=== PATIENT | male | born 1990 | race African-American/Black ===

== ENCOUNTER 2020-04-16 21:06 | Emergency (ER) | payer MEDICAID ==
[~2020-04-16] VITALS: Ht 185.4 cm; Wt 102.0 kg
[2020-04-16] MEDS ORDERED: SODIUM CHLORIDE 0.9% 1,000 ML IV ONE (21:40)
[2020-04-16 22:55] LABS: CHLORIDE 106 mEq/L (98-107)
[2020-04-16 22:58] LABS: BASOPHILS % 0.9 % (0.0-2.0); EOSINOPHILS % 4.1 % (0.0-5.0); HEMATOCRIT. 45.3 % (42.0-52.0); HEMOGLOBIN. 15.2 g/dL (14.0-18.0); LYMPHOCYTES % 36.6 % (20.0-50.0); MEAN CORPUSCULAR HEMOGLOBIN 27.9 pg (28.0-32.0); MONOCYTES % 9.3 % (2.0-8.0); NEUTROPHILS % 49.1 % (40.0-76.0); PLATELET 267 x1000/uL (130-400); RED BLOOD CELL COUNT 5.46 mill/uL (4.7-6.1); RED CELL DISTRIBUTION WIDTH 14.5 % (11.6-14.6)
[2020-04-16 23:02] LABS: ETHANOL BLOOD < 10 mg/dL
[2020-04-16 23:39] VITALS: BP 122/76
== END 2020-04-16 23:49 | disposition home or self-care (01) ==
LOC: ER 21:06
DX: R00.2 Palpitations (principal); J30.9 Allergic rhinitis, unspecified; L23.81 Allergic contact dermatitis due to animal (cat) (dog) dander; R00.0 Tachycardia, unspecified; Z98.890 Other specified postprocedural states; Z91.048 Other nonmedicinal substance allergy status
CPT/HCPCS: 36415; 71045; 80053; 80320; 83880; 84443; 84484; 85025; 85379; 93005; 99285; J7030; G0480

== ENCOUNTER 2020-11-05 04:04 | Emergency (ER) | payer MEDICAID ==
[~2020-11-05] VITALS: Ht 185.4 cm; Wt 98.0 kg
[2020-11-05 04:36] VITALS: BP 144/84
[2020-11-05 06:46] LABS: BASOPHILS % 0.9 % (0.0-2.0); EOSINOPHILS % 4.4 % (0.0-5.0); HEMOGLOBIN. 13.2 g/dL (14.0-18.0); LYMPHOCYTES % 41.2 % (20.0-50.0); MEAN CORPUSCULAR HEMOGLOBIN 27.6 pg (28.0-32.0); MEAN CORPUSCULAR VOLUME 83.6 fL (80.0-94.0); MEAN PLATELET VOLUME 9.7 fl (7.4-10.4); MONOCYTES % 8.6 % (2.0-8.0); NEUTROPHILS % 44.9 % (40.0-76.0); PLATELET 239 x1000/uL (130-400); RED BLOOD CELL COUNT 4.78 mill/uL (4.7-6.1)
[2020-11-05 06:50] LABS: CHLORIDE 107 mEq/L (98-107)
[2020-11-05 06:55] LABS: ETHANOL BLOOD < 10 mg/dL
[2020-11-05 08:12] LABS: *AMPHETAMINES SCREEN URINE NEGATIVE (NEGATIVE); *BARBITURATES SCREEN URINE NEGATIVE (NEGATIVE); *BENZODIAZEPINES SCREEN URINE NEGATIVE (NEGATIVE); METHADONE URINE SCREEN NEGATIVE (NEGATIVE); OPIATES URINE SCREEN NEGATIVE (NEGATIVE)
[2020-11-05 08:13] LABS: *COCAINE SCREEN URINE NEGATIVE (NEGATIVE); CANNABINOID URINE SCREEN NEGATIVE (NEGATIVE); PHENCYCLIDINE URINE SCREEN NEGATIVE (NEGATIVE)
== END 2020-11-05 08:21 | disposition home or self-care (01) ==
LOC: ER 04:04
DX: R07.89 Other chest pain (principal); R42 Dizziness and giddiness
CPT/HCPCS: 36415; 71045; 80053; 80305; 80320; 83880; 84443; 84484; 85025; 93005; 99285; G0480

== ENCOUNTER 2021-04-30 13:18 | Emergency (ER) | payer MEDICAID ==
[~2021-04-30] VITALS: Ht 172.7 cm; Wt 80.0 kg
[2021-04-30 14:02] VITALS: BP 126/73
[2021-04-30] MEDS ORDERED: IBUP-2028 MT (14:59)
== END 2021-04-30 15:10 | disposition home or self-care (01) ==
LOC: ER 13:18
DX: S53.491A Other sprain of right elbow, initial encounter (principal); N40.0 Benign prostatic hyperplasia without lower urinary tract symptoms; Z91.09 Other allergy status, other than to drugs and biological substances; K21.9 Gastro-esophageal reflux disease without esophagitis; X58.XXXA Exposure to other specified factors, initial encounter; Y93.89 Activity, other specified; Y92.018 Other place in single-family (private) house as the place of occurrence of the external cause
CPT/HCPCS: 99282

== ENCOUNTER 2021-05-19 08:52 | Emergency (ER) | payer MEDICAID ==
[~2021-05-19] VITALS: Ht 185.4 cm; Wt 95.0 kg
[~2021-05-19 08:52] MED LIST: IBUP-2028 MT
[2021-05-19] MEDS ORDERED: MAGNESIUM/ALUMINUM HYDROXIDE/SIMETHICONE 30ML UDC PO STA (10:46)
[2021-05-19] MEDS ORDERED: VISCOUS LIDOCAINE 2% 15 ML UDC PO STA (10:46)
[2021-05-19 11:26] LABS: BASOPHILS % 0.8 % (0.0-2.0); EOSINOPHILS % 2.9 % (0.0-5.0); HEMATOCRIT. 39.1 % (42.0-52.0); HEMOGLOBIN. 13.2 g/dL (14.0-18.0); LYMPHOCYTES % 41.8 % (20.0-50.0); MEAN CORPUSCULAR HEMOGLOBIN 27.6 pg (28.0-32.0); MEAN CORPUSCULAR VOLUME 81.8 fL (80.0-94.0); MEAN PLATELET VOLUME 9.6 fl (7.4-10.4); MONOCYTES % 7.7 % (2.0-8.0); NEUTROPHILS % 46.8 % (40.0-76.0); PLATELET 243 x1000/uL (130-400); RED BLOOD CELL COUNT 4.78 mill/uL (4.7-6.1)
[2021-05-19 11:29] LABS: CHLORIDE 106 mEq/L (98-107)
[2021-05-19 12:39] VITALS: BP 117/70
== END 2021-05-20 15:30 | disposition home or self-care (01) ==
LOC: ER 08:59
DX: R10.9 Unspecified abdominal pain (principal); K21.9 Gastro-esophageal reflux disease without esophagitis; Z91.048 Other nonmedicinal substance allergy status
CPT/HCPCS: 36415; 71045; 76700; 80053; 84484; 85025; 93005; 99285

== ENCOUNTER 2021-07-30 06:23 | Emergency (ER) | payer MEDICAID, OTHER ==
[~2021-07-30] VITALS: Ht 182.9 cm; Wt 90.7 kg
[2021-07-30 07:44] LABS: BASOPHILS % 1.1 % (0.0-2.0); EOSINOPHILS % 1.4 % (0.0-5.0); HEMATOCRIT. 44.2 % (42.0-52.0); HEMOGLOBIN. 14.9 g/dL (14.0-18.0); LYMPHOCYTES % 49.5 % (20.0-50.0); MEAN CORPUSCULAR HEMOGLOBIN 27.7 pg (28.0-32.0); MEAN CORPUSCULAR VOLUME 82.2 fL (80.0-94.0); MEAN PLATELET VOLUME 10.5 fl (7.4-10.4); MONOCYTES % 6.6 % (2.0-8.0); NEUTROPHILS % 41.4 % (40.0-76.0); PLATELET 289 x1000/uL (130-400); RED BLOOD CELL COUNT 5.37 mill/uL (4.7-6.1); RED CELL DISTRIBUTION WIDTH 14.3 % (11.6-14.6)
[2021-07-30 09:01] LABS: CHLORIDE 107 mEq/L (98-107)
[2021-07-30] MEDS ORDERED: TOPUD PO (09:33)
[2021-07-30 10:40] VITALS: BP 105/60
== END 2021-07-30 10:53 | disposition home or self-care (01) ==
LOC: ER 06:23
DX: R07.2 Precordial pain (principal); R00.2 Palpitations; Z88.8 Allergy status to other drugs, medicaments and biological substances; Z79.899 Other long term (current) drug therapy
CPT/HCPCS: 36415; 71045; 80053; 83880; 84484; 85025; 93005; 99285; Z7610

== ENCOUNTER 2021-08-19 02:09 | Emergency (ER) | payer MEDICAID ==
[~2021-08-19] VITALS: Ht 185.4 cm; Wt 100.0 kg
[~2021-08-19 02:09] MED LIST changes: +TOPUD PO
[2021-08-19 02:52] VITALS: BP 114/78
== END 2021-08-19 03:26 | disposition home or self-care (01) ==
LOC: ER 02:09
DX: R07.89 Other chest pain (principal); R00.2 Palpitations; F41.9 Anxiety disorder, unspecified
CPT/HCPCS: 93005; 99283

== ENCOUNTER 2021-11-29 17:06 | Emergency (ER) | payer MEDICAID, OTHER ==
[~2021-11-29] VITALS: Ht 185.4 cm; Wt 95.0 kg
[2021-11-29 17:08] VITALS: BP 121/72
[2021-11-29 17:56] LABS: EOSINOPHILS % 0.6 % (0.0-5.0); HEMATOCRIT. 42.2 % (42.0-52.0); HEMOGLOBIN. 14.2 g/dL (14.0-18.0); LYMPHOCYTES % 34.4 % (20.0-50.0); MEAN CORPUSCULAR HEMOGLOBIN 27.5 pg (28.0-32.0); MEAN CORPUSCULAR VOLUME 81.7 fL (80.0-94.0); MEAN PLATELET VOLUME 9.8 fl (7.4-10.4); MONOCYTES % 7.4 % (2.0-8.0); NEUTROPHILS % 56.6 % (40.0-76.0); PLATELET 253 x1000/uL (130-400); RED BLOOD CELL COUNT 5.17 mill/uL (4.7-6.1); RED CELL DISTRIBUTION WIDTH 14.7 % (11.6-14.6)
[2021-11-29 18:03] LABS: CHLORIDE 107 mEq/L (98-107)
== END 2021-11-29 19:58 | disposition home or self-care (01) ==
LOC: ER 17:06
DX: R06.00 Dyspnea, unspecified (principal); R07.9 Chest pain, unspecified; K21.9 Gastro-esophageal reflux disease without esophagitis; N36.44 Muscular disorders of urethra; Z91.048 Other nonmedicinal substance allergy status
CPT/HCPCS: 36415; 71045; 80053; 83880; 84484; 85025; 93005; 99285

== ENCOUNTER 2022-01-26 19:03 | Emergency (ER) | payer OTHER ==
[~2022-01-26] VITALS: Ht 185.4 cm; Wt 99.0 kg
[2022-01-26 19:17] VITALS: BP 133/75
[2022-01-26] MEDS ORDERED: IBUPROFEN 400MG TABLET PO ONE (23:30)
[2022-01-26 23:56] LABS: BASOPHILS % 1.1 % (0.0-2.0); EOSINOPHILS % 3.1 % (0.0-5.0); HEMATOCRIT. 44.3 % (42.0-52.0); HEMOGLOBIN. 14.7 g/dL (14.0-18.0); LYMPHOCYTES % 45.7 % (20.0-50.0); MEAN CORPUSCULAR HEMOGLOBIN 27.3 pg (28.0-32.0); MEAN CORPUSCULAR VOLUME 82.6 fL (80.0-94.0); MEAN PLATELET VOLUME 10.1 fl (7.4-10.4); MONOCYTES % 7.4 % (2.0-8.0); NEUTROPHILS % 42.7 % (40.0-76.0); PLATELET 236 x1000/uL (130-400); RED BLOOD CELL COUNT 5.37 mill/uL (4.7-6.1); RED CELL DISTRIBUTION WIDTH 14.4 % (11.6-14.6)
[2022-01-27 00:02] LABS: CHLORIDE 107 mEq/L (98-107)
[2022-01-27] MEDS ORDERED: IBUP-2028 MT (01:01)
[2022-01-27] MEDS ORDERED: BENZ-16 MT (01:01)
[2022-01-27] MEDS ORDERED: GUAIFENESIN 200MG/10ML SUGAR FREE UDC PO ONE (01:30)
== END 2022-01-27 03:10 | disposition home or self-care (01) ==
LOC: ER 19:03
DX: R07.89 Other chest pain (principal); Z79.899 Other long term (current) drug therapy
CPT/HCPCS: 36415; 71045; 80053; 83880; 84484; 85025; 85379; 93005; 99285

== ENCOUNTER 2022-02-07 14:49 | Emergency (ER) | payer OTHER ==
[~2022-02-07] VITALS: Ht 185.4 cm; Wt 95.0 kg
[~2022-02-07 14:49] MED LIST changes: +BENZ-16 MT
[2022-02-07 18:49] LABS: CLARITY URINE CLEAR (CLEAR); COLOR URINE DARK YELLOW (YELLOW); KETONES URINE TRACE (NEGATIVE); LEUKOCYTE ESTERASE URINE TRACE (NEGATIVE); NITRITE URINE NEGATIVE (NEGATIVE); OCCULT BLOOD URINE NEGATIVE (NEGATIVE); PH URINE 6.5 (4.5-8.0); PROTEIN URINE NEGATIVE (NEGATIVE); SPECIFIC GRAVITY URINE 1.027 (1.005-1.030)
[2022-02-07] MEDS ORDERED: CEFTRIAXONE SODIUM 1 G/VIAL IM ONE (19:15)
[2022-02-07] MEDS ORDERED: LIDOCAINE HCL 1% 20ML VIAL (Pyxis) INJ INFIL ONE (19:15)
[2022-02-07] MEDS ORDERED: DOXY100C5 MT (20:46)
[2022-02-07 21:53] VITALS: BP 135/70
[2022-02-11 06:09] LABS: NEISSERIA GONORRHOEAE NAA Negative (Negative)
== END 2022-02-07 21:55 | disposition home or self-care (01) ==
LOC: ER 14:49
DX: R30.0 Dysuria (principal); Z91.048 Other nonmedicinal substance allergy status
CPT/HCPCS: 81003; 87086; 87491; 87591; 96372; 99283; J0696; J3490

== ENCOUNTER 2022-02-10 23:07 | Emergency (ER) | payer OTHER ==
[~2022-02-10] VITALS: Ht 185.4 cm; Wt 95.0 kg
[~2022-02-10 23:07] MED LIST changes: +DOXY100C5 MT
[2022-02-10 23:14] VITALS: BP 150/81
[2022-02-11] MEDS ORDERED: SODIUM CHLORIDE 0.9% 1,000 ML IV ONE
[2022-02-11 00:24] LABS: BASOPHILS % 1.2 % (0.0-2.0); EOSINOPHILS % 2.2 % (0.0-5.0); HEMATOCRIT. 40.9 % (42.0-52.0); HEMOGLOBIN. 13.7 g/dL (14.0-18.0); LYMPHOCYTES % 45.9 % (20.0-50.0); MEAN CORPUSCULAR HEMOGLOBIN 27.4 pg (28.0-32.0); MEAN CORPUSCULAR VOLUME 81.8 fL (80.0-94.0); MEAN PLATELET VOLUME 10.6 fl (7.4-10.4); MONOCYTES % 8.8 % (2.0-8.0); NEUTROPHILS % 41.9 % (40.0-76.0); PLATELET 232 x1000/uL (130-400); RED CELL DISTRIBUTION WIDTH 14.3 % (11.6-14.6)
[2022-02-11 00:26] LABS: CHLORIDE 107 mEq/L (98-107)
[2022-02-11] MEDS ORDERED: MAGNESIUM/ALUMINUM HYDROXIDE/SIMETHICONE 30ML UDC PO SCH (00:30)
[2022-02-11] MEDS ORDERED: DIPHENHYDRAMINE 50MG/ML VIAL IV SCH (00:30)
[2022-02-11 00:36] LABS: ETHANOL BLOOD < 10 mg/dL
[2022-02-11 00:45] LABS: *AMPHETAMINES SCREEN URINE NEGATIVE (NEGATIVE); *BARBITURATES SCREEN URINE NEGATIVE (NEGATIVE); *BENZODIAZEPINES SCREEN URINE NEGATIVE (NEGATIVE); *COCAINE SCREEN URINE NEGATIVE (NEGATIVE); CANNABINOID URINE SCREEN NEGATIVE (NEGATIVE); METHADONE URINE SCREEN NEGATIVE (NEGATIVE); OPIATES URINE SCREEN NEGATIVE (NEGATIVE); PHENCYCLIDINE URINE SCREEN NEGATIVE (NEGATIVE)
== END 2022-02-11 02:02 | disposition home or self-care (01) ==
LOC: ER 23:07
DX: R00.2 Palpitations (principal); I10 Essential (primary) hypertension; Z88.1 Allergy status to other antibiotic agents; Z88.2 Allergy status to sulfonamides; Z91.048 Other nonmedicinal substance allergy status; T36.4X5A Adverse effect of tetracyclines, initial encounter; Y92.018 Other place in single-family (private) house as the place of occurrence of the external cause
CPT/HCPCS: 36415; 71045; 80053; 80305; 80320; 83880; 84484; 85025; 85379; 93005; 96361; 96374; 99285; J1200; J7030; G0480

== ENCOUNTER 2022-02-13 23:21 | Emergency (ER) | payer OTHER ==
[~2022-02-13] VITALS: Ht 185.4 cm; Wt 95.0 kg
[2022-02-14] MEDS ORDERED: ONDANSETRON HCL 4MG/2ML INJ IV STA (02:19)
[2022-02-14] MEDS ORDERED: HYDROCODONE/ACETAMINOPHEN 5/325MG TABLET PO STA (02:19)
[2022-02-14] MEDS ORDERED: SODIUM CHLORIDE 0.9% 1,000 ML IV ONE (02:30)
[2022-02-14] MEDS ORDERED: TOPUD MT (03:25)
[2022-02-14] MEDS ORDERED: ONDA8TAB13 MT (03:28)
[2022-02-14] MEDS ORDERED: ACETAMINOPHEN 325MG TABLET PO ONE (05:00)
[2022-02-14 05:50] VITALS: BP 126/64
== END 2022-02-14 06:00 | disposition home or self-care (01) ==
LOC: ER 23:21
DX: M79.10 Myalgia, unspecified site (principal); J30.1 Allergic rhinitis due to pollen; Z88.2 Allergy status to sulfonamides; Z88.3 Allergy status to other anti-infective agents; Z91.048 Other nonmedicinal substance allergy status; Z20.822 Contact with and (suspected) exposure to COVID-19
CPT/HCPCS: 71045; 87426; 96361; 96374; 99284; C9803; J2405; J7030

== ENCOUNTER 2022-08-16 14:10 | Emergency (ER) | payer OTHER ==
[~2022-08-16] VITALS: Ht 185.4 cm; Wt 84.0 kg
[~2022-08-16 14:10] MED LIST changes: +ONDA8TAB13 MT; +TOPUD MT
[2022-08-16 14:20] VITALS: BP 112/77
[2022-08-16] MEDS ORDERED: ASPIRIN 81MG TABLET PO ONE (16:00)
[2022-08-16 16:37] LABS: BASOPHILS % 0.9 % (0.0-2.0); EOSINOPHILS % 0.5 % (0.0-5.0); HEMATOCRIT. 46.1 % (42.0-52.0); HEMOGLOBIN. 15.1 g/dL (14.0-18.0); LYMPHOCYTES % 46.1 % (20.0-50.0); MEAN CORPUSCULAR HEMOGLOBIN 27.5 pg (28.0-32.0); MEAN CORPUSCULAR VOLUME 83.8 fL (80.0-94.0); MEAN PLATELET VOLUME 10.4 fl (7.4-10.4); MONOCYTES % 7.6 % (2.0-8.0); NEUTROPHILS % 44.9 % (40.0-76.0); PLATELET 189 x1000/uL (130-400); RED CELL DISTRIBUTION WIDTH 14.6 % (11.6-14.6)
[2022-08-16 16:55] LABS: CHLORIDE 108 mEq/L (98-107)
[2022-08-16 20:02] LABS: D-DIMER < 0.19 mg/L FEU (<0.50); INR 1.1; PARTIAL THROMBOPLASTIN TIME 27.6 sec (23.4-31.0); PROTHROMBIN TIME 11.7 sec (9.6-11.0)
== END 2022-08-16 20:50 | disposition home or self-care (01) ==
LOC: ER 14:10
DX: R07.89 Other chest pain (principal); R06.02 Shortness of breath; K21.9 Gastro-esophageal reflux disease without esophagitis; Z79.899 Other long term (current) drug therapy
CPT/HCPCS: 36415; 71045; 80053; 83880; 84484; 85025; 85379; 93005; 99285

== ENCOUNTER 2023-01-05 19:49 | Emergency (ER) | payer MEDICAID, OTHER ==
[~2023-01-05] VITALS: Ht 185.4 cm; Wt 86.1 kg
[2023-01-05 21:39] LABS: CLARITY URINE CLEAR (CLEAR); COLOR URINE YELLOW (YELLOW); KETONES URINE NEGATIVE (NEGATIVE); LEUKOCYTE ESTERASE URINE NEGATIVE (NEGATIVE); NITRITE URINE NEGATIVE (NEGATIVE); OCCULT BLOOD URINE NEGATIVE (NEGATIVE); PH URINE >=9.0 (4.5-8.0); PROTEIN URINE NEGATIVE (NEGATIVE); SPECIFIC GRAVITY URINE 1.014 (1.005-1.030); UROBILINOGEN URINE 0.2 E.U./dL (0.2-1.0)
[2023-01-05] MEDS ORDERED: CEFTRIAXONE SODIUM 500 MG/VIAL IM ONE (23:00)
[2023-01-05] MEDS ORDERED: LIDOCAINE HCL 1% 20ML VIAL (Pyxis) INJ INFIL ONE (23:00)
[2023-01-05] MEDS ORDERED: AZITHROMYCIN 500 MG TABLET PO ONE (23:15)
[2023-01-06] MEDS ORDERED: IBUP-2028 MT (00:47)
[2023-01-06 01:15] VITALS: BP 117/74
[2023-01-08 04:14] LABS: NEISSERIA GONORRHOEAE NAA Negative (Negative)
== END 2023-01-06 01:19 | disposition home or self-care (01) ==
LOC: ER 19:49
DX: N50.82 Scrotal pain (principal); R30.0 Dysuria; K21.9 Gastro-esophageal reflux disease without esophagitis; Z88.1 Allergy status to other antibiotic agents; Z88.6 Allergy status to analgesic agent; Z88.8 Allergy status to other drugs, medicaments and biological substances
CPT/HCPCS: 76870; 81003; 87491; 87591; 93976; 96372; 99285; J0696

== ENCOUNTER 2024-05-11 06:56 | Emergency (ER) | payer MEDICAID, OTHER ==
[~2024-05-11] VITALS: Ht 185.4 cm; Wt 81.0 kg
[~2024-05-11 06:56] MED LIST changes: +ONDA-241 MT; -ONDA8TAB13 MT
[2024-05-11 07:00] VITALS: O2SAT 100
[2024-05-11 07:46] LABS: CHLORIDE 107 mEq/L (98-107); POTASSIUM 3.9 mEq/L (3.5-5.1)
[2024-05-11 07:47] LABS: BASOPHILS % 0.9 % (0.0-2.0); EOSINOPHILS % 1.1 % (0.0-5.0); HEMATOCRIT. 39.6 % (42.0-52.0); HEMOGLOBIN. 12.8 g/dL (14.0-18.0); LYMPHOCYTES % 42.7 % (20.0-50.0); MEAN CORPUSCULAR HEMOGLOBIN 27.6 pg (28.0-32.0); MEAN CORPUSCULAR HGB CONC 32.3 g/dL (31.0-37.0); MEAN CORPUSCULAR VOLUME 85.6 fL (80.0-94.0); MEAN PLATELET VOLUME 9.8 fl (7.4-10.4); MONOCYTES % 8.4 % (2.0-8.0); NEUTROPHILS % 46.9 % (40.0-76.0); PLATELET 210 x1000/uL (130-400); RED BLOOD CELL COUNT 4.62 mill/uL (4.7-6.1); RED CELL DISTRIBUTION WIDTH 14.2 % (11.6-14.6); SODIUM 140 mEq/L (136-145); WHITE BLOOD COUNT 4.5 x1000/uL (4.5-11.0)
[2024-05-11 07:48] LABS: CALCIUM 9.7 mg/dL (8.7-10.4); CARBON DIOXIDE 28 mEq/L (21-32)
[2024-05-11 07:53] LABS: GLUCOSE 95 mg/dL (70-105); UREA NITROGEN BLOOD 9 mg/dL (9-23)
[2024-05-11 08:02] LABS: TROPONIN I HIGH SENSITIVITY < 4 ng/L (3.0-53)
[2024-05-11 09:29] VITALS: BP 106/74; PULSE 62; RESP 18; TEMP 36.61404; O2SAT 100
== END 2024-05-11 09:43 | disposition home or self-care (01) ==
LOC: ER 07:29
DX: R07.89 Other chest pain (principal); J30.81 Allergic rhinitis due to animal (cat) (dog) hair and dander; Z91.048 Other nonmedicinal substance allergy status; Z88.6 Allergy status to analgesic agent; Z88.2 Allergy status to sulfonamides; Z88.1 Allergy status to other antibiotic agents; Z79.899 Other long term (current) drug therapy
CPT/HCPCS: 36415; 71045; 80048; 84484; 85025; 93005; 99285

== ENCOUNTER 2024-11-04 06:40 | Emergency (ER) | payer MEDICAID, OTHER ==
[~2024-11-04] VITALS: Ht 180.3 cm; Wt 79.0 kg
[2024-11-04 06:47] VITALS: O2SAT 100
[2024-11-04 06:53] VITALS: BP 119/70; TEMP 36.8; O2SAT 99
[2024-11-04 07:55] VITALS: PULSE 80; RESP 20
[2024-11-04] MEDS: ALBUTEROL (0.083%) 2.5MG/3ML NEB HHN STA (07:55)
[2024-11-04] MEDS ORDERED: ALBU90AE INH (09:03)
== END 2024-11-04 09:25 | disposition home or self-care (01) ==
LOC: ER 06:40
DX: R05.9 Cough, unspecified (principal); Z88.6 Allergy status to analgesic agent; Z88.2 Allergy status to sulfonamides; Z88.1 Allergy status to other antibiotic agents; Z79.899 Other long term (current) drug therapy
CPT/HCPCS: 71045; 94640; 93005; 99283; Z7610 ×3; 94070